=== PATIENT | male | born 2000 | race Caucasian/White ===

== ENCOUNTER 2021-02-10 12:34 | Emergency (ER) | payer OTHER ==
[~2021-02-10] VITALS: Ht 175.3 cm; Wt 54.7 kg
[~2021-02-10 12:34] MED LIST: BACTRIM DS TAB1 EACH PO; BUPROPION XL150 MG PO; CLINDAMYCIN HC300 MG PO; MIRTAZAPINE15 MG PO; VITAMIN D250000 UNIT PO
[2021-02-10] MEDS ORDERED: DICYCLOMINE HCL10 MG PO (15:04)
== END 2021-02-10 15:41 | disposition home or self-care (01) ==
LOC: ED 12:34
DX: K58.9 Irritable bowel syndrome, unspecified (principal); Z79.899 Other long term (current) drug therapy
CPT/HCPCS: 74018; 80053; 81001; 85025; 99284-25

== ENCOUNTER 2021-02-15 17:02 | Emergency (ER) | payer OTHER ==
[~2021-02-15] VITALS: Ht 175.3 cm; Wt 53.9 kg
[~2021-02-15 17:02] MED LIST changes: +DICYCLOMINE HCL10 MG PO
--- OUTSIDE RECORDS SUMMARY | 2021-02-15 17:10 | XMS ---
PreManage Notification: JAISON GARCÍA Security Director Data Processing Events No recent Security Events currently on file CRITERIA MET - [facility] - 2 Visits in 30 Days CARE PROVIDERS There are no care providers on record at this time. Latrice has no Care Guidelines for this patient. Nithin VISIT COUNT (12 MO.) 2 [facility] TOTAL 2 NOTE: Visits indicate total known visits. ED/C VISIT TRACKING (12 MO.) 02/15/2021 17:02 [facility] [place] [facility] COMPLAINT: - ABDOMINAL PAIN 02/10/2021 12:35 [facility] [place] TYPE: Emergency COMPLAINT: - ABDOMINAL PAIN DIAGNOSES: - Irritable bowel syndrome without diarrhea - Lower abdominal pain, unspecified - Other oysterman (current) drug therapy INPATIENT VISIT TRACKING (12 MO.) No inpatient visits to display in this time frame [id number]
[2021-02-15] MEDS ORDERED: PROTONIX40 MG PO (22:25)
== END 2021-02-15 22:38 | disposition home or self-care (01) ==
LOC: ED 17:02
DX: R10.13 Epigastric pain (principal); R10.32 Left lower quadrant pain
CPT/HCPCS: 74177; 80053; 81001; 83690; 85025; 99284-25; J1885

== ENCOUNTER 2021-02-17 10:54 | Emergency (ER) | payer OTHER ==
[~2021-02-17] VITALS: Ht 175.3 cm; Wt 53.5 kg
[~2021-02-17 10:54] MED LIST changes: +PROTONIX40 MG PO
--- OUTSIDE RECORDS SUMMARY | 2021-02-17 11:02 | XMS ---
PreManage Notification: JAISON GARCÍA Security Clutch Rebuilder Events No recent Security Events currently on file CRITERIA MET - [facility] - 2 Visits in 30 Days - [facility] - Has Care Guidelines CARE PROVIDERS AMARA ABREU [facility] 02/16/2021-Current PHONE: Unknown Latrice has no Care Guidelines for this patient. Care History Medical/Surgical 02/16/2021 [facility] - Patient is currently established with [facility]. If patient is seen in the ED during business hours. Please contact CHWs at [facility]. Care Recommendation: If this patient has had 5 or more Emergency Department visits in the last 12 months.\T\nbsp; Patient will require education on the scope and purpose of the ED as an acute care provider not a Primary Care Provider and should not be utilized for chronic conditions.\T\nbsp; These are guidelines and the provider should exercise clinical judgment when providing care. 02/16/2021 [facility] Patient established care with DR. Abreu on 02/15/2021 and was escorted to ER for further diagnostics. E.D. VISIT COUNT (12 MO.) [address] [facility] TOTAL 3 NOTE: Visits indicate total known visits. ED/UCC VISIT TRACKING (12 MO.) 02/17/2021 10:55 [facility] [place] TYPE: Emergency COMPLAINT: - ABDOMINAL PAIN, DIARRHEA 02/15/2021 17:02 [facility] [place] TYPE: Emergency COMPLAINT: - ABDOMINAL PAIN 02/10/2021 12:[address] [facility] [place] TYPE: Emergency COMPLAINT: - ABDOMINAL PAIN DIAGNOSES: - Irritable bowel syndrome without diarrhea - Lower abdominal pain, unspecified - Other long chain quiller tender (current) drug therapy INPATIENT VISIT TRACKING (12 MO.) No inpatient visits to display in this time frame [email or web address]
== END 2021-02-17 16:43 | disposition home or self-care (01) ==
LOC: ED 10:54
DX: R19.7 Diarrhea, unspecified (principal); Z79.899 Other long term (current) drug therapy
CPT/HCPCS: 80053; 82248; 85025; 96374; 99284-25; J1885; J7030

== ENCOUNTER 2021-06-12 10:07 | Emergency (ER) | payer OTHER ==
[~2021-06-12] VITALS: Ht 175.3 cm; Wt 52.2 kg
--- OUTSIDE RECORDS SUMMARY | 2021-06-12 10:14 | XMS ---
PreManage Notification: JAISON GARCÍA Security Delivery Mgr Events No recent Security Events currently on file CRITERIA MET - [facility] - Has Care Guidelines CARE PROVIDERS AMARA ABREU [facility] 02/16/2021-Current PHONE: Unknown Latrice has no Care Guidelines for this patient. Care History Medical/Surgical 02/21/2021 [facility] Patient's mother contacted Clinic nurse and was advised to take patient to ER for testing and unresolved abdominal pain. No follow up scheduled at this time. 02/16/2021 [facility] - Patient is currently established with [facility]. If patient is seen in the ED during business hours. Please contact CHWs at [facility]. Care Recommendation: If this patient [...] exercise clinical judgment when providing care. 02/16/2021 [facility] Patient established care with DR. Abreu on 02/15/2021 and was escorted to ER for further diagnostics. E.D. VISIT COUNT (12 MO.) 4 [facility] TOTAL 4 NOTE: Visits indicate total known visits. ED/UCC VISIT TRACKING (12 MO.) 06/12/2021 10:08 [facility] [place] TYPE: Emergency COMPLAINT: - SKIN PROBLEM 02/17/2021 10:55 [facility] [place] TYPE: Emergency COMPLAINT: - ABDOMINAL PAIN, DIARRHEA DIAGNOSES: - Diarrhea, unspecified - Other half-way (current) drug therapy 02/15/2021 17:02 [facility] [place] TYPE: Emergency COMPLAINT: - ABDOMINAL PAIN DIAGNOSES: - Other half-way (current) drug therapy - Epigastric pain - Left lower quadrant pain 02/10/2021 12:35 [facility] [place] TYPE: Emergency COMPLAINT: - ABDOMINAL PAIN DIAGNOSES: - Irritable bowel syndrome without diarrhea - Lower abdominal pain, unspecified - Other paid search marketing analyst (current) drug therapy INPATIENT VISIT TRACKING (12 MO.) No inpatient visits to display in this time frame [id number]
[2021-06-12] MEDS ORDERED: BUPROPION XL150 MG PO (10:27)
[2021-06-12] MEDS ORDERED: SULFAMETHOXAZO1 EAC1 PO (10:27)
[2021-06-12] MEDS ORDERED: CENTANY30 GM TOP (10:58)
== END 2021-06-12 11:19 | disposition home or self-care (01) ==
LOC: ED 10:07
DX: L02.214 Cutaneous abscess of groin (principal); N48.89 Other specified disorders of penis; Z79.899 Other long term (current) drug therapy
CPT/HCPCS: 10060; 99282-25

== ENCOUNTER 2021-12-25 09:52 | Emergency (ER) | payer OTHER ==
[~2021-12-25] VITALS: Ht 175.3 cm; Wt 52.2 kg
[~2021-12-25 09:52] MED LIST changes: +CENTANY30 GM TOP; +SULFAMETHOXAZO1 EAC1 PO
--- OUTSIDE RECORDS SUMMARY | 2021-12-25 10:01 | XMS ---
PreManage Notification: JAISON GARCÍA Security Head And Neck Surgeon Events No recent Security Events currently on file CRITERIA MET - [facility] - Has Care Guidelines CARE PROVIDERS AMARA ABREU [facility] 02/16/2021-Current PHONE: Unknown Latrice has no Care Guidelines for this patient. Care History Medical/Surgical 02/21/2021 [facility] Patient's mother contacted Clinic nurse and was advised to take patient to ER for testing and unresolved abdominal pain. No follow up scheduled at this time. 02/16/2021 [facility] - Patient is currently established with [facility]. If patient is seen in the ED during business hours. Please contact CHWs at [facility]. Care Recommendation: If this patient [...] exercise clinical judgment when providing care. 02/16/2021 [facility] Patient established care with DR. Abreu on 02/15/2021 and was escorted to ER for further diagnostics. E.D. VISIT COUNT (12 MO.) 5 [facility] TOTAL 5 NOTE: Visits indicate total known visits. ED/UCC VISIT TRACKING (12 MO.) 12/25/2021 09:53 [facility] [place] TYPE: Emergency COMPLAINT: - GROIN PAIN 06/12/2021 10:08 [facility] [place] TYPE: Emergency COMPLAINT: - SKIN PROBLEM DIAGNOSES: - Other specified disorders of the skin and subcutaneous tissue - Cutaneous abscess of groin - Other termite helper (current) drug therapy - Other specified disorders of penis 02/17/2021 10:55 [facility] [place] TYPE: Emergency COMPLAINT: - ABDOMINAL PAIN, DIARRHEA DIAGNOSES: - Other mcc (current) drug therapy - Diarrhea, unspecified 02/15/2021 17:02 [facility] [place] TYPE: Emergency COMPLAINT: - ABDOMINAL PAIN DIAGNOSES: - Epigastric pain - Left lower quadrant pain - Other termite helper (current) drug therapy 02/10/2021 12:35 [facility] [place] TYPE: Emergency COMPLAINT: - ABDOMINAL PAIN DIAGNOSES: - Lower abdominal pain, unspecified - Other termite helper (current) drug therapy - Irritable bowel syndrome without diarrhea INPATIENT VISIT TRACKING (12 MO.) No inpatient visits to display in this time frame [id number]
== END 2021-12-25 12:16 | disposition home or self-care (01) ==
LOC: ED 09:52
DX: N50.812 Left testicular pain (principal); Z79.899 Other long term (current) drug therapy
CPT/HCPCS: 76870; 81001; 99284-25